=== PATIENT | male | born 1945 | race Caucasian/White ===

== ENCOUNTER 2022-01-30 13:50 | Inpatient (IN) ==
[2022-01-30 14:21] LABS: ABS Basophils 0.1 10^3/ul (0-0.2); ABS Eosinophils 0.3 10^3/ul (0-0.6); ABS Lymphocytes 2.3 10^3/ul (1.0-4.8); ABS Monocytes 0.7 10^3/ul (0-0.8); ABS Neutrophils 4.5 10^3/ul (1.5-7.7); Eosinophil % 3.5 %; Hematocrit 45 % (42-52); Hemoglobin 15.1 g/dL (14.0-18.0); Lymphocyte % 29.6 %; Mean Corpuscular HGB Conc 34 g/dL (31-36); Mean Corpuscular Hemoglobin 32 pg (27-31); Mean Corpuscular Volume 95 fL (80-94); Mean Platelet Volume 8.2 fL (7.4-10.4); Platelet Count 185 10^3/uL (150-450); Red Blood Count 4.69 10^6 /uL (4.18-5.48); Red Cell Distribution Width 15 % (10-15); White Blood Count 7.8 10^3/uL (3.5-10.8)
[2022-01-30 14:36] LABS: INR 1.14 (0.89-1.11)
[2022-01-30 15:15] LABS: Albumin 4.5 g/dL (3.2-5.2); Albumin/Globulin Ratio 1.8 (1-3); Calcium 9.4 mg/dL (8.6-10.3); Globulin 2.5 g/dL (2-4); Potassium 4.2 mmol/L (3.5-5.0); Total Bilirubin 1.4 mg/dL (0.2-1.0)
[2022-01-30 16:21] LABS: High Sensitivity Troponin 1 Hr 19 pg/mL (<20)
[2022-01-30] MEDS: Aspirin EC 81 mg TAB.EC (enteric coated) PO SCH (20:48)
[2022-01-30] MEDS: Heparin 5000 UNITS/ML 1 mL VIAL SUBCUT ONE ×2 (20:48→21:09)
[2022-01-30 23:19] LABS: Direct Bilirubin 0.2 mg/dL (0.03-0.18); Indirect Bilirubin 1.2 mg/dL (0.3-1.0); Magnesium 2.1 mg/dL (1.9-2.7)
[2022-01-31 03:07] LABS: TSH Ultra Thyroid Stim Horm 1.41 mcIU/mL (0.34-5.60)
[2022-01-31 05:22] LABS: Hematocrit 34 % (42-52); Hemoglobin 11.8 g/dL (14.0-18.0); Mean Corpuscular HGB Conc 35 g/dL (31-36); Mean Corpuscular Hemoglobin 33 pg (27-31); Mean Corpuscular Volume 95 fL (80-94); Mean Platelet Volume 8.4 fL (7.4-10.4); Platelet Count 144 10^3/uL (150-450); Red Cell Distribution Width 14 % (10-15); White Blood Count 5.9 10^3/uL (3.5-10.8)
[2022-01-31 05:59] LABS: Albumin 3.5 g/dL (3.2-5.2); Albumin/Globulin Ratio 1.8 (1-3); Calcium 7.6 mg/dL (8.6-10.3); Globulin 1.9 g/dL (2-4); Magnesium 1.8 mg/dL (1.9-2.7); Potassium 3.5 mmol/L (3.5-5.0); Total Bilirubin 1.3 mg/dL (0.2-1.0); Total Protein 5.4 g/dL (6.4-8.9); eGFR CKD-EPI 96.9 (>60)
[2022-01-31] MEDS ORDERED: NS 0.9% 1000 ml BAG 1,000 ML IV SCH (06:30)
[2022-01-31] MEDS ORDERED: Magnesium Sulfate IV 1GM/100ML 1 GM/100 ML BAG IV ONE (06:41)
[2022-01-31 07:01] LABS: Direct Bilirubin 0.2 mg/dL (0.03-0.18)
[2022-01-31] MEDS ORDERED: fentaNYL 100 mcg/2 ml 50 MCG/ML VIAL ONE (08:58)
[2022-01-31] MEDS ORDERED: Midazolam 5 mg/5 ml VIAL 1 mg/ml 5 ml VIAL (5 mg) ONE (08:58)
[2022-01-31] MEDS ORDERED: VERAPAMIL 2.5 MG/ML 2 ML VIAL ** 5 mg/2 ml ONE (08:58)
[2022-01-31] MEDS ORDERED: Heparin 2 UNITS/ML 1000 mls 2,000 ML IV ONE (08:59)
[2022-01-31] MEDS ORDERED: nitroGLYCERIN DRIP 25,000 MCG/250 ML BTL ONE (08:59)
[2022-01-31] MEDS ORDERED: Heparin 1,000 UNIT/ML 10 ml (10,000 UNITS) CATHLAB/DIALYSIS ONE (08:59)
[2022-01-31] MEDS ORDERED: Iohexol 350 (CONTRAST) 100 ML PAK IV ONE (09:00)
[2022-01-31] MEDS ORDERED: Lidocaine 1% MPF 5 ML VIAL ONE (09:00)
[2022-01-31] MEDS ORDERED: Aspirin EC 81 mg TAB.EC (enteric coated) PO SCH (09:00)
[2022-01-31] MEDS: Cholecalciferol (VIT D3) 1,000 unit TAB PO SCH (12:26)
[2022-01-31] MEDS: Aspirin EC 81 mg TAB.EC (enteric coated) PO SCH (12:26)
[2022-01-31] MEDS ORDERED: Enoxaparin 40 MG/0.4 ML SYR SUBCUT SCH (18:00)
[2022-01-31 19:24] LABS: C Reactive Protein 2.03 mg/L (<8.01)
[2022-01-31 19:44] LABS: Ferritin 38.2 ng/mL (24-336)
[2022-02-01 06:05] LABS: ABS Basophils 0.1 10^3/ul (0-0.2); ABS Eosinophils 0.3 10^3/ul (0-0.6); ABS Lymphocytes 2.8 10^3/ul (1.0-4.8); ABS Monocytes 0.7 10^3/ul (0-0.8); ABS Neutrophils 3.5 10^3/ul (1.5-7.7); Hematocrit 41 % (42-52); Hemoglobin 14.4 g/dL (14.0-18.0); Lymphocyte % 37.7 %; Mean Corpuscular HGB Conc 35 g/dL (31-36); Mean Corpuscular Hemoglobin 33 pg (27-31); Mean Corpuscular Volume 95 fL (80-94); Mean Platelet Volume 8.5 fL (7.4-10.4); Nucleated Red Blood Cells % 0.1; Platelet Count 162 10^3/uL (150-450); Red Blood Count 4.36 10^6 /uL (4.18-5.48); Red Cell Distribution Width 14 % (10-15); White Blood Count 7.4 10^3/uL (3.5-10.8)
[2022-02-01 06:29] LABS: Albumin/Globulin Ratio 1.9 (1-3); Globulin 2.1 g/dL (2-4); Magnesium 2.1 mg/dL (1.9-2.7); Potassium 4.1 mmol/L (3.5-5.0); Total Bilirubin 1.1 mg/dL (0.2-1.0); Total Protein 6.1 g/dL (6.4-8.9); eGFR CKD-EPI 91.9 (>60)
[2022-02-01] MEDS: Aspirin EC 81 mg TAB.EC (enteric coated) PO SCH (09:34)
[2022-02-01] MEDS: Cholecalciferol (VIT D3) 1,000 unit TAB PO SCH (09:35)
[2022-02-01 12:17] VITALS: BP 132/80
== END 2022-02-01 15:15 | disposition home or self-care (01) | DRG 204 ==
LOC: ED 13:50 → MEDTELE 19:54 → EDHOLD 19:54 → CHICATH 01-31 08:46 → EDHOLD 01-31 08:48 → MEDTELE 01-31 14:50 → SUATTDRO 01-31 14:50 → MEDTELE 01-31 15:10 → UNDODISIN 02-01 15:15
PROVIDERS: ADMIT Internal Medicine; ATTEND Student in an Organized Health Care Education/Training Program